=== PATIENT | male | born 1960 | race Caucasian/White ===

== ENCOUNTER 2018-04-17 07:17 | Day surgery (SDC) | payer OTHER, MEDICARE ==
[~2018-04-17 07:17] MED LIST: Buffered Lidocaine 0.9% SYRIN* 5 ML/SYR SYRINGE INTRADERM ONE; Lactated Ringers 1000 ML Bag* 1,000 ML IV SCH
[2018-04-17] MEDS ORDERED: Midazolam* 1 MG/ML 2 ML VIAL (2 MG) ONE (08:27)
[2018-04-17] MEDS ORDERED: fentaNYL* 50 MCG/ML 2 ML VIAL (100 MCG VIAL) ONE ×4 (08:27→11:39)
[2018-04-17] MEDS ORDERED: ceFAZolin 2 GM PREMIX in ORs 2 GM/50 ML BAG IVPB ONE (08:44)
[2018-04-17] MEDS ORDERED: Propofol* 10 MG/ML 20 ML BTL ONE (09:57)
[2018-04-17] MEDS ORDERED: Lidocaine 2% PF * 5 ML VIAL ONE (09:57)
[2018-04-17] MEDS ORDERED: Dexamethasone IV* 4 MG/ML 1 ML (4 MG) ONE (09:57)
[2018-04-17] MEDS ORDERED: Ondansetron INJ* 2 MG/ML VIAL ONE (09:57)
[2018-04-17] MEDS ORDERED: Ondansetron INJ* 2 MG/ML VIAL IV PRN (09:59)
[2018-04-17] MEDS ORDERED: Naloxone* 0.4 MG/ML 1 ML VIAL IV PRN ×2 (09:59→10:12)
[2018-04-17] MEDS ORDERED: Bupivacaine 0.5%* 50 ML VIAL ONE (10:04)
[2018-04-17] MEDS ORDERED: Acetaminophen TAB* 325 MG PO PRN (10:12)
[2018-04-17] MEDS ORDERED: Ketorolac INJ* 30 MG/ML 1 ML VIAL IV PRN (10:12)
[2018-04-17] MEDS ORDERED: fentaNYL* 50 MCG/ML 2 ML VIAL (100 MCG VIAL) IV PRN (10:12)
[2018-04-17] MEDS: fentaNYL* 50 MCG/ML 2 ML VIAL (100 MCG VIAL) IV PRN ×4 (11:33→12:16)
[2018-04-17] MEDS ORDERED: Ketorolac INJ* 30 MG/ML 1 ML VIAL ONE (11:39)
--- NOTE | 2018-04-17 11:39 | OP ---
Operative Report - Blank - Operative Report Date of Operation: 04/17/18 Note: PATIENT: Patrick Carter DATE OF : 1960 DATE OF SURGERY: 04/17/2018 SURGEON: Bharath Dee MD [place] OFFICER: NANDA Doyle, whos assistance was necessary for positioning, retraction, help with instrumentation, and closure. ANESTHESIOLOGIST: Radha Fuller MD PREOPERATIVE DIAGNOSIS: Right foot hallux rigidus and gastrocnemius contracture POSTOPERATIVE DIAGNOSIS: Right foot hallux rigidus and gastrocnemius contracture OPERATION: Right first metatarsophalangeal joint arthrodesis and gastrocnemius recession (Patria procedure) ANESTHESIA: GETA IMPLANTS: Two Arthrex 4.0mm cannulated screws TOURNIQUET TIME: Less than 1.5 hours with a well-padded thigh tourniquet at 250mmHg SPECIMENS: None ESTIMATED BLOOD LOSS: Minimal COMPLICATIONS: none STATUS: Stable from the operating room to the recovery room and then home. INDICATIONS FOR PROCEDURE: Patrick has had persistent pain from hallux rigidus and plantar fasciitis. Both operative and non-operative treatment alternatives were reviewed. Further, the nature and risks of surgery were reviewed in careful detail, in the office as well as the pre-operative holding area. Our discussions regarding the risks of surgery included, but were not limited to, infection, wound problems, nerve injury, neuroma, RSD, persistent symptoms, blood clot, nonunion, malunion, fracture, need for further surgery, failure of the surgery, and even the remote chance of catastrophic complication, including loss of limb. DESCRIPTION OF PROCEDURE: The patient was seen in the preoperative holding unit and informed written consent was obtained. The appropriate extremity was marked. The patient was then brought to the operating room and carefully positioned on the operating room table. Anesthesia was induced. All bony prominences were padded with great care. A chlorhexidine based pre-scrub was performed followed by a chloraprep prep and drape in standard sterile fashion. A surgical safety pause was then conducted in which we confirmed the appropriate patient, extremity, planned procedure, availability of equipment, indication and administration of prophylactic antibiotics, and DVT prophylaxis in the form of a compression boot on the non-surgical extremity. I began with an Esmarch exsanguination of the limb and inflated the tourniquet. I then made an incision dorsally overlying the first MTP joint. I carried the dissection down through the soft tissue and mobilized the EHL tendon laterally. I then came sharply down to the level of the first MTP joint. I released around the medial aspects and lateral aspects of the joint to expose the metatarsal head and the base of the proximal phalanx. We had excellent visualization. There were arthritic changes present. I prepared the joint for arthrodesis utilizing a combination of curettes, osteotomes, burrs and a 2-mm drill. There was healthy cancellous bone on both sides of the joint. This joint nicely reapproximated once we gained proper alignment. At this point, we used a flat plate to ensure that the hallux was not plantar flexed. I then placed the hardware, consisting of two 4.0 mm cannulated screws with excellent purchase, which held the toe well aligned. This was rigid fixation with well opposed bone on both sides of the fusion site. Fluoroscopy was utilized to confirm the reduction and position of the hardware. I then made an approximately 3-cm incision at the posteromedial calf. I carried the dissection through the soft tissue and divided the crural fascia longitudinally. I then exposed the fascia of the gastrocnemius muscle. Great care was taken to protect the sural nerve throughout this procedure. I cleared all adhesions from the posterior aspect of the gastrocnemius fascia and then transected this in its entirety from medially to laterally. I then identified the plantaris tendon, which was also tight medially. This was transected. These procedures had the effect of improving the ankle dorsiflexion to approximately 10 degrees. I then again confirmed that the sural nerve was in continuity. The wounds were copiously irrigated and meticulously closed in layers utilizing 3-0 Monocryl and 3-0 nylon and skin kavitha. A sterile dressing was then applied , followed by a splint with the ankle at neutral. The patient was then awakened from anesthesia and transferred to the recovery room in stable condition. There were no complications. All needle and sponge counts were correct at the end of the case. ATTESTATION: I attest I was present and scrubbed and performed the critical portions of the procedure myself. POSTOPERATIVE PLAN: The patient will remain heel weightbearing for anticipated duration of 6 weeks. Followup will be in 2 weeks for likely suture removal and Steri-Strip application.
[2018-04-17] MEDS ORDERED: HYDROmorphone INJ1* 1 MG/ML SYRINGE ONE ×2 (11:47→12:24)
[2018-04-17] MEDS: HYDROmorphone INJ1* 1 MG/ML SYRINGE IV PRN ×5 (11:48→12:09)
[2018-04-17] MEDS ORDERED: oxyCODONE/Acetamin 5/325 MG* TAB ONE ×2 (12:39→13:30)
[2018-04-17] MEDS ORDERED: hydrALAZINE IV* 20 MG/ML VIAL ONE (12:40)
[2018-04-17] MEDS: oxyCODONE/Acetamin 5/325 MG* TAB PO PRN ×2 (12:41→13:31)
[2018-04-17 12:49] VITALS: BP 166/95
== END 2018-04-17 14:26 | disposition home or self-care (01) ==
LOC: OR 07:17
PROVIDERS: ATTEND Orthopaedic Surgery
DX: M20.21 Hallux rigidus, right foot (principal); M62.471 Contracture of muscle, right ankle and foot; K21.9 Gastro-esophageal reflux disease without esophagitis; M19.90 Unspecified osteoarthritis, unspecified site
CPT/HCPCS: 76001; A9270-GY; C1713; C1776; J0360; J0690; J1100; J1170; J1885; J2250; J2405; J2704; J3010